=== PATIENT | male | born 1960 | race Caucasian/White ===

== ENCOUNTER 2020-09-02 05:47 | Day surgery (SDC) | payer BC, MEDICARE ==
[~2020-09-02] VITALS: Ht 177.8 cm; Wt 83.0 kg
[2020-09-02 06:41] VITALS: BP 116/80
[2020-09-02] MEDS ORDERED: LEVE500T8 PO (06:54)
[2020-09-02] MEDS ORDERED: SIMV40TA20 PO (06:54)
[2020-09-02] MEDS ORDERED: SERT50TA28 PO (06:54)
[2020-09-02] MEDS ORDERED: OXYC-302 PO (06:54)
[2020-09-02] MEDS ORDERED: fenofibrate (06:54)
[2020-09-02] MEDS ORDERED: vitamin d3 (06:54)
[2020-09-02] MEDS ORDERED: GEMF600T8 PO (06:54)
[2020-09-02] MEDS ORDERED: CHLORHEXIDINE 15 ML UDC ONE (06:56)
[2020-09-02] MEDS ORDERED: FENO145T19 PO (07:16)
[2020-09-02] MEDS ORDERED: DONE5TAB7 PO (07:17)
[2020-09-02] MEDS ORDERED: CHLORHEXIDINE 15 ML UDC MM STA (07:31)
[2020-09-02] MEDS ORDERED: LACTATED RINGERS 1,000 ML IV SCH (08:00)
[2020-09-02] MEDS ORDERED: NEOSTIGMINE 1 MG/ML, 10ML ONE (08:25)
[2020-09-02] MEDS ORDERED: PROPOFOL 10 MG/ML, 20ML ONE (08:25)
[2020-09-02] MEDS ORDERED: LIDOCAINE PF 2%, 5ML ONE (08:25)
[2020-09-02] MEDS ORDERED: CEFAZOLIN 1,000 MG ONE (08:25)
[2020-09-02] MEDS ORDERED: GLYCOPYRROLATE 0.2MG/1ML, 5ML ONE (08:25)
[2020-09-02] MEDS ORDERED: ROCURONIUM 10 MG/ML,10ML ONE (08:25)
[2020-09-02] MEDS ORDERED: DEXAMETHASONE 4 MG/ML, 1ML ONE (08:25)
[2020-09-02] MEDS ORDERED: ONDANSETRON 2MG/ML, 2ML ONE (08:25)
[2020-09-02] MEDS ORDERED: FENTANYL PF 100 MCG/2ML ONE (08:43)
[2020-09-02] MEDS ORDERED: OMNIPAQUE 350 MG/ML, 50 ML BOTTLE IV ONE (09:04)
[2020-09-02] MEDS ORDERED: OXYcodone 5 MG/5 ML ORAL.SOL UDC PO PRN (09:30)
[2020-09-02] MEDS ORDERED: MEPERIDINE/PF 25MG/0.5ML IVPush PRN (09:30)
[2020-09-02] MEDS ORDERED: HALOPERIDOL 5 MG/ML IV PRN (09:30)
[2020-09-02] MEDS ORDERED: ACETAMINOPHEN 325 MG TABLET PO PRN (09:30)
[2020-09-02] MEDS ORDERED: FENTANYL PF 100 MCG/2ML IV PRN (09:30)
[2020-09-02] MEDS ORDERED: METHOCARBAMOL 1,000 MG in DEXTROSE 5% 100 ML IV PRN (09:30)
[2020-09-02] MEDS ORDERED: ONDANSETRON 2MG/ML, 2ML IVPush PRN (09:30)
[2020-09-02] MEDS ORDERED: KETOROLAC 30 MG/1 ML IVPush PRN (09:30)
[2020-09-02] MEDS ORDERED: PROMETHAZINE 25 MG/ML, 1ML IVPush PRN (09:30)
[2020-09-02] MEDS ORDERED: HYDROmorphone 1 MG/ML, 1ML INJ IVPush PRN (09:30)
[2020-09-02] MEDS ORDERED: DIAZEPAM 5 MG/ML, 2ML IVPush PRN (09:30)
== END 2020-09-02 11:35 | disposition home or self-care (01) ==
LOC: OUT 05:47
PROVIDERS: ATTEND Urology
DX: N20.1 Calculus of ureter (principal); Z20.828 Contact with and (suspected) exposure to other viral communicable diseases
CPT/HCPCS: 36415; 52356; 82360; 87635; 88300; C1726; C1758; C2617; J0690; J1100; J2405; J2704; J2710; J3010; J7120; Q9967